=== PATIENT | male | born 1995 | race Two or more races ===

== ENCOUNTER 2020-02-26 09:19 | Emergency (ER) | payer OTHER ==
[~2020-02-26] VITALS: Ht 180.3 cm; Wt 86.0 kg
[2020-02-26] MEDS ORDERED: ACETAMINOPHEN 325MG TABLET PO ONE (10:30)
[2020-02-26 10:31] LABS: CLARITY URINE CLEAR (CLEAR); COLOR URINE YELLOW (YELLOW); KETONES URINE NEGATIVE (NEGATIVE); LEUKOCYTE ESTERASE URINE 1+ (NEGATIVE); NITRITE URINE NEGATIVE (NEGATIVE); OCCULT BLOOD URINE NEGATIVE (NEGATIVE); PROTEIN URINE NEGATIVE (NEGATIVE); SPECIFIC GRAVITY URINE 1.012 (1.005-1.030); UROBILINOGEN URINE 0.2 E.U./dL (0.2-1.0)
[2020-02-26 10:47] LABS: EOSINOPHILS % 1.1 % (0.0-5.0); HEMATOCRIT. 43.2 % (42.0-52.0); LYMPHOCYTES % 25.2 % (20.0-50.0); MEAN CORPUSCULAR HEMOGLOBIN 31.8 pg (28.0-32.0); MEAN CORPUSCULAR VOLUME 91.5 fL (80.0-94.0); MEAN PLATELET VOLUME 6.9 fl (7.4-10.4); MONOCYTES % 6.7 % (2.0-8.0); PLATELET 286 x1000/uL (130-400); RED BLOOD CELL COUNT 4.72 mill/uL (4.7-6.1); RED CELL DISTRIBUTION WIDTH 13.3 % (11.6-14.6)
[2020-02-26 10:51] LABS: CHLORIDE 107 mEq/L (98-107)
[2020-02-26 10:56] LABS: PROTHROMBIN TIME 10.2 sec (9.6-11.0)
[2020-02-26] MEDS ORDERED: AZITHROMYCIN 500 MG TABLET PO SCH (12:45)
[2020-02-26] MEDS ORDERED: ONDANSETRON 4MG ODT PO ONE (12:45)
[2020-02-26] MEDS ORDERED: CEFTRIAXONE SODIUM 1 G/VIAL IM ONE (12:45)
[2020-02-26 13:17] VITALS: BP 127/80
== END 2020-02-26 13:15 | disposition home or self-care (01) ==
LOC: ER 09:19
DX: N45.3 Epididymo-orchitis (principal); N43.3 Hydrocele, unspecified; R03.0 Elevated blood-pressure reading, without diagnosis of hypertension
CPT/HCPCS: 36415; 76870; 80053; 81003; 83690; 85025; 85610; 87086; 93976; 96372; 99284; J0696; Q0162